=== PATIENT | female | born 1995 | race Caucasian/White ===

== ENCOUNTER 2022-08-20 09:32 | Outpatient (CLI) | payer BC | END 2022-08-20 09:33 | disposition home or self-care (01) | LOC: CSHLAB 09:32 | PROVIDERS: ATTEND Advanced Practice Midwife | DX: Z20.822 Contact with and (suspected) exposure to COVID-19 (principal) | CPT/HCPCS: 87811 ==

== ENCOUNTER 2022-08-21 19:00 | Inpatient (IN) | payer BC ==
[2022-08-22] MEDS ORDERED: Promethazine HCl 25 MG/ML VIAL IM PRN ×2 (02:48→21:29)
[2022-08-22] MEDS ORDERED: Acetaminophen 500 MG TAB PO PRN (02:48)
[2022-08-22] MEDS ORDERED: hydrALAZINE 20 MG/ML VIAL SLOW IVP PRN (02:48)
[2022-08-22] MEDS ORDERED: Ondansetron PF 4 MG/2 ML Vial IVP PRN ×2 (02:48→21:29)
[2022-08-22] MEDS ORDERED: Lidocaine 1% (PF) 30 ML VIAL SC PRN (02:48)
[2022-08-22] MEDS ORDERED: Vancomycin 1 GM in Premix Bag 1 BAG IVPB SCH (03:00)
[2022-08-22] MEDS ORDERED: NS w/ Oxytocin 30 units 500 ML IV SCH ×2 (03:00→03:15)
[2022-08-22 03:03] LABS: Hemoglobin 12.3 g/dL (12.0-15.5); Mean Corpuscular HGB CONC 34.6 g/dL (32.0-36.0); Mean Corpuscular Hemoglobin 30.1 pg (27.0-33.0); Mean Platelet Volume 10.3 fl (7.4-10.4); Platelet Count 229 10x3/uL (150-450); RBC Distribution Width 13.6 % (11.5-14.5); Red Blood Cell (RBC) Count 4.08 10x6/uL (3.90-5.03); White Blood Cell (WBC) Count 7.9 10x3/uL (3.5-10.5)
[2022-08-22] MEDS: Lactated Ringer's 1,000 ML IV SCH ×3 (03:14→21:41)
[2022-08-22] MEDS: Misoprostol 100 MCG TAB VAG SCH (03:14)
[2022-08-22 03:35] LABS: HBSAg Index 0.21 S/CO (0-0.99); Hep B Surf Ag Non-Reactive S/CO (NonReactive); Syphilis Antibody Nonreactive (Nonreactive); Syphilis Antibody Index 0.04 S/CO (<1.00 Non-Reactive)
[2022-08-22] MEDS ORDERED: VANCOMYCIN 1.25 GM in Sodium Chloride 0.9% 250 ML 250 ML IVPB SCH (04:00)
[2022-08-22] MEDS ORDERED: Bupivacaine/Epinephrine 0.25% 30 ML VIAL ONE (08:00)
[2022-08-22] MEDS ORDERED: ePHEDrine Sulfate 50 MG/10 ML VIAL ONE (08:00)
[2022-08-22] MEDS: Vancomycin HCl 1 GM in Sodium Chloride 0.9% 250 ML 250 ML IVPB SCH (15:53)
[2022-08-22] MEDS ORDERED: Fentanyl 2 mcg/Bup 0.1% Cadd 100 ML ONE (20:49)
[2022-08-22] MEDS ORDERED: Moisturizing Cream (Eucerin) 113 GM JAR TOP PRN (21:29)
[2022-08-22] MEDS ORDERED: Acetaminophen 325 MG TAB PO PRN (21:29)
[2022-08-22] MEDS ORDERED: diphenhydrAMINE 50 MG/ML VIAL IVP PRN (21:29)
[2022-08-22] MEDS ORDERED: Naloxone HCl 0.4 mg/ml Vial IVP PRN ×2 (21:29)
[2022-08-22] MEDS ORDERED: Lactated Ringer's 500 ML IV PRN (21:29)
[2022-08-22] MEDS ORDERED: ePHEDrine Sulfate 50 MG/10 ML VIAL SLOW IVP PRN (21:29)
[2022-08-22] MEDS ORDERED: Communication Order-Pharmacy FS SCH (21:30)
[2022-08-23] MEDS: Vancomycin HCl 1 GM in Sodium Chloride 0.9% 250 ML 250 ML IVPB SCH ×2 (04:02→18:36)
[2022-08-23] MEDS: Lactated Ringer's 1,000 ML IV SCH ×3 (04:02→23:10)
[2022-08-23] MEDS: Fentanyl 2 mcg/Bupivacaine 0.1% Cassette 100 ML EPIDURAL SCH ×2 (04:43→11:22)
[2022-08-23] MEDS ORDERED: Misoprostol 200 MCG TAB ONE (12:10)
[2022-08-23] MEDS ORDERED: Carboprost 250 MCG/ML AMP ONE (12:10)
[2022-08-23] MEDS ORDERED: Methylergonovine 0.2 MG/ML VIAL ONE (12:11)
[2022-08-23] MEDS ORDERED: Mineral Oil ENEMA ONE (15:43)
[2022-08-23] MEDS: Misoprostol 100 MCG TAB VAG SCH ×4 (18:36→23:09)
[2022-08-23] MEDS ORDERED: Boostrix 0.5 ML (Tdap) VIAL (>/=7 yrs of age) IM ONE (19:30)
[2022-08-23] MEDS ORDERED: Benzocaine-Menthol 82.5 ML CAN TOP PRN (19:30)
[2022-08-23] MEDS ORDERED: NS w/ Oxytocin 30 units 500 ML IV SCH (19:30)
[2022-08-23] MEDS ORDERED: Misoprostol 200 MCG TAB VAG PRN (19:30)
[2022-08-23] MEDS ORDERED: Bisacodyl 10 MG SUPP PR PRN (19:30)
[2022-08-23] MEDS ORDERED: Milk Of Magnesia 30 ML UDCUP PO PRN (19:30)
[2022-08-23] MEDS ORDERED: HYDROcodone/Acetaminophen 5/325 mg Tablet PO PRN ×2 (19:30)
[2022-08-23] MEDS ORDERED: hydrALAZINE 20 MG/ML VIAL SLOW IVP PRN (19:30)
[2022-08-23] MEDS ORDERED: Ferrous Sulfate 325 MG TAB PO SCH (19:45)
[2022-08-23] MEDS: Ibuprofen 800 MG TAB PO SCH (20:00)
[2022-08-23] MEDS: Docusate 100 MG CAP PO SCH (21:21)
[2022-08-24] MEDS: Ibuprofen 800 MG TAB PO SCH ×3 (04:34→21:50)
[2022-08-24] MEDS: Prenatal Vitamin 1 TAB PO SCH (08:25)
[2022-08-24] MEDS: Docusate 100 MG CAP PO SCH ×2 (08:25→21:50)
[2022-08-24] MEDS: Ferrous Sulfate 325 MG TAB PO SCH ×2 (08:26→18:18)
[2022-08-25] MEDS: Ibuprofen 800 MG TAB PO SCH ×2 (05:23→12:07)
[2022-08-25] MEDS: Ferrous Sulfate 325 MG TAB PO SCH (06:53)
[2022-08-25 07:44] VITALS: BP 117/76; TEMP 97.7
[2022-08-25] MEDS: Docusate 100 MG CAP PO SCH (08:09)
[2022-08-25] MEDS: Prenatal Vitamin 1 TAB PO SCH (08:09)
== END 2022-08-25 12:46 | disposition home or self-care (01) | DRG 807 ==
LOC: CSHLD 08-22 01:30 → CSHPP 08-23 20:10
PROVIDERS: ADMIT Obstetrics & Gynecology; ATTEND Obstetrics & Gynecology
PROC: 3E0P7VZ Introduction of Hormone into Female Reproductive, Via Natural or Artificial Opening (ICD-10-PCS; 2022-08-22)
PROC: 3E033VJ Introduction of Other Hormone into Peripheral Vein, Percutaneous Approach (ICD-10-PCS; 2022-08-22)
PROC: 10E0XZZ Delivery of Products of Conception, External Approach (ICD-10-PCS; principal; 2022-08-23)
PROC: 0KQM0ZZ Repair Perineum Muscle, Open Approach (ICD-10-PCS; 2022-08-23)
PROC: 10907ZC Drainage of Amniotic Fluid, Therapeutic from Products of Conception, Via Natural or Artificial Opening (ICD-10-PCS; 2022-08-23)
PROC: 10H07YZ Insertion of Other Device into Products of Conception, Via Natural or Artificial Opening (ICD-10-PCS; 2022-08-23)
DX: O99.824 Streptococcus B carrier state complicating childbirth (principal); Z37.0 Single live birth; Z3A.40 40 weeks gestation of pregnancy; Z88.1 Allergy status to other antibiotic agents; Z88.8 Allergy status to other drugs, medicaments and biological substances; Z88.0 Allergy status to penicillin; Z91.018 Allergy to other foods; O69.81X0 Labor and delivery complicated by cord around neck, without compression, not applicable or unspecified; O70.1 Second degree perineal laceration during delivery
CPT/HCPCS: 36415; 51702; 85027; 86780; 86850; 86900; 86901; 87340; 87811; J2001; J2405; J2590; J3370; J7050; J7120